=== PATIENT | male | born 1950 | race Caucasian/White ===

== ENCOUNTER 2020-04-10 03:05 | Emergency (ER) | payer BC, OTHER ==
[~2020-04-10] VITALS: Ht 185.4 cm; Wt 75.7 kg
[~2020-04-10 03:05] MED LIST: ACET325T9 PO; DOCU-109 PO; DULO60CA45 PO; ENOX40DI SQ; FAMO40TA4 PO; GLYC1SUP31 RC; GUAI1CAP16 PO; HYDR-3164 PO; MAG360OR24 PO; MAGN24003 PO; ONDA4TAB7 PO; POLY17PO29 PO; TEMA15CA PO; TRAM50TA PO
[2020-04-10] MEDS ORDERED: CEPH500C PO (04:00)
--- NOTE | 2020-04-10 04:00 | PHYS DOC ---
Past Medical History Past Medical History: Other Additional Past Medical Histor: Hernia Past Surgical History: Other Additional Past Surgical Histo: Hernia surgery Smoking Status: Current Every Day Smoker Alcohol Use: None Drug Use: None General Adult EDM: Chief Complaint: LACERATION/AVULSION HPI: HPI: Patient is a 70 year old male who presents with a laceration to his left hand that he sustained when he bumped it against the edge of a door. Patient reports pain is mild. He denies any other injuries. Patient is not sure if he is up-to-date on his tetanus. He states that injury occurred approximately an hour prior to arrival. [] Review of Systems: Review of Systems: Constitutional: Denies fever or chills. [] Respiratory: Denies cough or shortness of breath. [] Cardiovascular: Denies chest pain or edema. [] Integument: Positive laceration left hand. [] Neurologic: Denies headache, focal weakness or sensory changes. [] Heart Score: Risk Factors: Risk Factors: DM, Current or recent (<one month) smoker, HTN, HLP, family history of CAD, obesity. Risk Scores: Score 0 - 3: 2.5% MACE over next 6 weeks - Discharge Home Score 4 - 6: 20.3% MACE over next 6 weeks - Admit for Clinical Observation Score 7 - 10: 72.7% MACE over next 6 weeks - Early Invasive Strategies Allergies: Allergies: Allergies Coded Allergies Type Severity Reaction Last Updated Verified codeine Allergy Intermediate Hives 12/04/14 Yes Physical Exam: PE: Constitutional: Well developed, well nourished, no acute distress, non-toxic appearance. [] Cardiovascular: Regular rate and rhythm [] Lungs & Thorax: Bilateral breath sounds clear to auscultation [] Skin: There is a 5 cm laceration noted to the dorsal aspect of the left hand, and shape of a flap, extending through subcutaneous tissue. Margins are slightly irregular. [] Extremities: Laceration as noted above. [] Neurologic: Alert and oriented X 3, normal motor function, normal sensory function, no focal deficits noted. [] Current Patient Data: Vital Signs: Vital Signs Date Time Temp Pulse Resp B/P (MAP) Pulse Ox O2 Delivery O2 Flow Rate FiO2 04/10/20 03:17 97.4 64 18 160/79 (106) 96 Room Air 97.4 EKG: EKG: [] Radiology/Procedures: Radiology/Procedures: [] Course & Med Decision Making: Course & Med Decision Making Pertinent Labs and Imaging studies reviewed. (See chart for details) Wound cleaned and draped in normal sterile fashion and after anesthetizing with 1% lidocaine without epinephrine, wound was closed utilizing a total of 19 simple interrupted sutures with 5-0 Ethilon suture material. Very good reapproximation of wound margins was achieved and patient tolerated procedure well. Dragon Disclaimer: Dragon Disclaimer: This electronic medical record was generated, in whole or in part, using a voice recognition dictation system. Departure Departure Impression: Primary Impression: Laceration of left hand Qualified Codes: S61.412A - Laceration without foreign body of left hand, initial encounter Disposition: HOME, SELF-CARE Condition: STABLE Referrals: MAHENDRA ANDERS (PCP) Patient Instructions: Laceration Care, Adult Scripts Cephalexin (CEPHALEXIN) 500 Mg Capsule 1 CAP PO BID, #20 CAP Prov: AROLDO MARVIN Jr. DO 04/10/20 Justicifation of Admission Dx: Justifications for Admission: Justification of Admission Dx: Comment: (Not applicable) AROLDO MARVIN Jr. DO Apr 10, 2020 04:00
[2020-04-10] MEDS ORDERED: NEOMY/BACITR/POLYMYXIN OINT PACKET. TP ONE (04:15)
[2020-04-10] MEDS ORDERED: DIPH,PERTUSS(ACELL),TET VAC/PF 0.5 ML SYRINGE. VAX IM ONE (04:15)
[2020-04-10 04:25] VITALS: BP 135/73
== END 2020-04-10 04:30 | disposition home or self-care (01) ==
LOC: ER 03:05
DX: S61.412A Laceration without foreign body of left hand, initial encounter (principal); F17.200 Nicotine dependence, unspecified, uncomplicated; Z88.5 Allergy status to narcotic agent; W22.8XXA Striking against or struck by other objects, initial encounter; Y93.89 Activity, other specified; Y92.89 Other specified places as the place of occurrence of the external cause; Y99.8 Other external cause status
CPT/HCPCS: 12002; 90471; 90715; 99283